=== PATIENT | female | born 1985 | race Caucasian/White ===

== ENCOUNTER 2017-05-20 14:38 | Emergency (ER) | payer SELFPAY ==
[~2017-05-20] VITALS: Ht 160 cm; Wt 72.0 kg
[~2017-05-20 14:38] MED LIST: DICY20TA59; HYDR-1666; IBUPROFEN PRN
[2017-05-20 14:40] VITALS: Ht 160 cm; Wt 72.0 kg
== END 2017-05-20 17:15 | disposition left against medical advice (07) ==
LOC: FTE 14:38
DX: Z53.21 Procedure and treatment not carried out due to patient leaving prior to being seen by health care provider (principal)